=== PATIENT | male | born 1945 ===

== ENCOUNTER 2018-05-27 19:43 | Emergency (ER) | payer OTHER ==
[~2018-05-27] VITALS: Ht 170.2 cm; Wt 90.7 kg
[~2018-05-27 19:43] MED LIST: CIPRO500 MG PO; KEFLEX250 MG PO; PERCOCET 5/3251 TAB PO; SURFAK240 M1 PO; URIN D.S. TABLE1 TAB PO
== END 2018-05-27 22:50 | disposition home or self-care (01) ==
LOC: ER 19:43
DX: S61.532A Puncture wound without foreign body of left wrist, initial encounter (principal); W18.09XA Striking against other object with subsequent fall, initial encounter; Y93.89 Activity, other specified; Y92.098 Other place in other non-institutional residence as the place of occurrence of the external cause; Y99.8 Other external cause status